=== PATIENT | male | born 1965 | race Caucasian/White ===

== ENCOUNTER 2024-04-08 06:34 | Day surgery (SDC) | payer MEDICAID ==
[~2024-04-08] VITALS: Ht 175.3 cm; Wt 96.2 kg
[2024-04-08] MEDS ORDERED: MEPERIDINE 100 MG INJ. 100 MG/ML VIAL ONE (07:16)
[2024-04-08] MEDS ORDERED: MIDAZOLAM HCL 5 MG/5 ML VIAL ONE ×2 (07:16→09:04)
[2024-04-08] MEDS ORDERED: SIMETHICONE 40 MG/0.6 ML ML ONE (07:16)
[2024-04-08 09:34] VITALS: O2SAT 96
[2024-04-08 12:29] VITALS: BP_SYST 104; PULSE 84; RESP 18
== END 2024-04-08 10:20 | disposition home or self-care (01) ==
LOC: SDS 06:34 → SMU 06:35 → SDS 10:20
PROVIDERS: ATTEND Internal Medicine Gastroenterology
DX: Z12.11 Encounter for screening for malignant neoplasm of colon (principal); R10.13 Epigastric pain; K29.50 Unspecified chronic gastritis without bleeding; B96.81 Helicobacter pylori [H. pylori] as the cause of diseases classified elsewhere; K64.8 Other hemorrhoids; K44.9 Diaphragmatic hernia without obstruction or gangrene; E78.5 Hyperlipidemia, unspecified; Z80.0 Family history of malignant neoplasm of digestive organs
CPT/HCPCS: 87081; 36415; 45378; 43239; 88305; 88312; 88313; 99152; 99153; G0378; J2250; J2175